=== PATIENT | female | born 1965 | race Hispanic/Latino ===

== ENCOUNTER 2017-04-30 11:23 | Outpatient (CLI) | payer OTHER ==
[~2017-04-30] VITALS: Ht 147.3 cm; Wt 74.4 kg
[~2017-04-30 11:23] MED LIST: FERR1TAB8 PO; MAXA10TA15 PO; VITA1CAP40 PO
[2017-04-30] MEDS ORDERED: LIDOCAINE 2% INJ 100 MG/5 ML SDV (FOR ANES.) As Ordered ONE (11:40)
[2017-04-30] MEDS ORDERED: PROPOFOL 500 MG/50 ML VIAL As Ordered ONE (11:40)
[2017-04-30] MEDS ORDERED: NS 1,000 ML IV ONE (12:00)
--- NOTE | 2017-04-30 12:50 | ROOR ---
Patient Name: Nola Romano Procedure Date: 04/30/2017 12:21 PM Date of : 1965 Age: 51 Room: [facility] Gender: Female Note Status: Finalized Procedure: Total Colonoscopy to Cecum Indications: Screening for colorectal malignant neoplasm Providers: Allen Botello MD Referring MD: JEANNETTE MACHADO MD Requesting Provider: Medicines: Monitored Anesthesia Care Complications: No immediate complications. Procedure: Pre-Anesthesia Assessment: - The heart rate, respiratory rate, oxygen saturations, blood pressure, adequacy of pulmonary ventilation, and response to care were monitored throughout the procedure. The Colonoscope was introduced through the anus and advanced to the cecum, identified by appendiceal orifice and ileocecal valve. The colonoscopy was performed without difficulty. The patient tolerated the procedure well. The quality of the bowel preparation was excellent. Findings: The perianal and digital rectal examinations were normal. Non-bleeding internal hemorrhoids were found during retroflexion. The hemorrhoids were small and Grade I (internal hemorrhoids that do not prolapse). No other significant abnormalities were identified in a careful examination of the remainder of the colon. The exam was otherwise without abnormality. Impression: - Non-bleeding internal hemorrhoids. - The examination was otherwise normal. - No specimens collected. - The exam was otherwise normal to the cecum. Recommendation: - Patient has a contact number available for emergencies. The signs and symptoms of potential delayed complications were discussed with the patient. Return to normal activities tomorrow. Written discharge instructions were provided to the patient. - High fiber diet. - Discharge patient to home. - Continue present medications. - Repeat colonoscopy in 10 years for screening purposes. - Return to referring physician. - The findings and recommendations were discussed with the patient's family. Allen Botello MD Allen Botello MD 04/30/2017 12:50:15 PM This report has been signed electronically. Number of Addenda: 0 Note Initiated On: 04/30/2017 12:21 PM Estimated Blood Loss: Estimated blood loss: none.
--- NOTE | 2017-04-30 12:56 | ROOR ---
Patient Name: Nola Romano Procedure Date: 04/30/2017 12:20 PM Date of : 1965 Age: 51 Room: [facility] Gender: Female Note Status: Finalized Procedure: Upper Endoscopy + Biopsies Indications: Heartburn Providers: Allen Botello MD Referring MD: JEANNETET MACHADO MD Requesting Provider: Medicines: Monitored Anesthesia Care Complications: No immediate complications. Procedure: Pre-Anesthesia Assessment: - The heart rate, respiratory rate, oxygen saturations, blood pressure, adequacy of pulmonary ventilation, and response to care were monitored throughout the procedure. The Endoscope was introduced through the mouth, and advanced to the second part of duodenum. The upper GI endoscopy was accomplished without difficulty. The patient tolerated the procedure well. Findings: The Z-line was irregular and was found 35 cm from the incisors. Multiple biopsies were obtained with cold forceps for histology randomly at the gastroesophageal junction. A small hiatal hernia was present. No other significant abnormalities were identified in a careful examination of the stomach. The exam of the duodenum was otherwise normal. Impression: - Z-line irregular, 35 cm from the incisors. - Small hiatal hernia. - Multiple biopsies were obtained at the gastroesophageal junction. - The examination was otherwise normal. Recommendation: - Patient has a contact number available for emergencies. The signs and symptoms of potential delayed complications were discussed with the patient. Return to normal activities tomorrow. Written discharge instructions were provided to the patient. - High fiber diet. - Discharge patient to home. - Follow an antireflux regimen. - Continue present medications. - Await pathology results. - Telephone GI clinic for pathology results in 1 week. - The findings and recommendations were discussed with the patient's family. Allen Botello MD Allen Botello MD 04/30/2017 12:55:49 PM This report has been signed electronically. Number of Addenda: 0 Note Initiated On: 04/30/2017 12:20 PM Estimated Blood Loss: Estimated blood loss: none.
[2017-04-30 13:28] VITALS: BP 132/60
== END 2017-04-30 13:30 | disposition home or self-care (01) ==
LOC: M OPP 11:23
PROVIDERS: ATTEND Internal Medicine Gastroenterology
DX: R19.4 Change in bowel habit (principal); K21.9 Gastro-esophageal reflux disease without esophagitis; K64.0 First degree hemorrhoids; R12 Heartburn; K22.8 Other specified diseases of esophagus; K44.9 Diaphragmatic hernia without obstruction or gangrene; R19.7 Diarrhea, unspecified; D64.9 Anemia, unspecified; R51 Headache; Z79.899 Other long term (current) drug therapy

== ENCOUNTER → 2017-07-02 | Outpatient (CLI) | payer OTHER ==
--- NOTE | 2017-07-02 11:49 | REPMRS ---
Patient History The patient states she had a clinical breast exam in April 2017. Family history of ovarian cancer in maternal cousin at age 30. Reductions of both breasts, 2002. Taking hormonal contraceptives for 1 year. Digital Mammo Screening Bilat: July 02, 2017 - Exam #: [id number] Bilateral CC and MLO view(s) were taken. Technologist: Laney Berger, Technologist Prior study comparison: June 27, 2016, bilateral digital mammo screening bilat performed at [facility]. June 22, 2015, bilateral digital mammo screening bilat performed at [facility]. FINDINGS: There are scattered fibroglandular densities. There has been no change in the appearance of the mammogram from the prior studies. There is a mild amount of residual fibroglandular tissue which is fairly symmetric. There is no interval development of dominant mass, architectural distortion, or clustered microcalcification suggestive of malignancy. ASSESSMENT: BI-RADS/ACR category 1 mammogram. Negative. Recommendation Routine screening mammogram in 1 year (for women over age 40). This mammogram was interpreted with the aid of an FDA-approved computer-aided dectection system. Electronically Signed By: Kurt Almendarez MD 07/02/17 [id number]
== END ==
LOC: M RAD 10:38
PROVIDERS: ATTEND Nurse Practitioner Women's Health
DX: Z12.31 Encounter for screening mammogram for malignant neoplasm of breast (principal)

== ENCOUNTER 2017-08-27 08:38 | Emergency (ER) | payer OTHER | END 2017-08-27 09:31 | disposition home or self-care (01) | LOC: M ED 08:38 | DX: R20.2 Paresthesia of skin (principal); G43.909 Migraine, unspecified, not intractable, without status migrainosus; J30.9 Allergic rhinitis, unspecified | CPT/HCPCS: 99283 ==

== ENCOUNTER → 2018-07-06 | Outpatient (CLI) | payer OTHER | LOC: M RAD 10:54 | DX: Z12.31 Encounter for screening mammogram for malignant neoplasm of breast (principal); Z79.3 Long term (current) use of hormonal contraceptives | CPT/HCPCS: 77067 ==

== ENCOUNTER → 2019-07-06 | Outpatient (CLI) | payer OTHER ==
[~2019-07-06] MED LIST changes: +TIZA2CAP PO; +TOPA50TA8 PO; -VITA1CAP40 PO; +VITA50005 PO
--- NOTE | 2019-07-06 09:17 | REPMRS ---
Patient History The patient states she had a clinical breast exam in May 2019. Family history of ovarian cancer at age 30 in maternal cousin. Reductions of both breasts, 2002. Took hormonal contraceptives for 1 year. The Teresita Sorto lifetime risk for breast cancer is 9.4%. Digital Mammo Screening Bilat: July 06, 2019 - Exam #: [id number] Bilateral CC and MLO view(s) were taken. Technologist: Mirta Blount, Technologist Prior study comparison: July 06, 2018, bilateral digital mammo screening bilat performed at [facility]. July 02, 2017, bilateral digital mammo screening bilat performed at [facility]. FINDINGS: There are scattered fibroglandular densities. There has been no change in the appearance of the mammogram from the prior studies. There is a mild amount of residual fibroglandular tissue which is fairly symmetric. There is no interval development of dominant mass, architectural distortion, or clustered microcalcification suggestive of malignancy. Assessment: BI-RADS/ACR category 1 mammogram. Negative Mammogram. Recommendation Routine screening mammogram in 1 year (for women over age 40). This mammogram was interpreted with the aid of an FDA-approved computer-aided dectection system. Electronically Signed By: Kurt Almendarez MD 07/06/19 [id number]
== END ==
LOC: M RAD 07:15
PROVIDERS: ATTEND Family Medicine
DX: Z12.31 Encounter for screening mammogram for malignant neoplasm of breast (principal)

== ENCOUNTER → 2019-07-29 | Outpatient (CLI) | payer OTHER ==
[~2019-07-29] MED LIST changes: +METHACHOLINE KIT (J7674) INH ONE
--- NOTE | 2019-07-29 10:02 | PFTRPT ---
Height: 58.00 Inches Weight: 170.00 Lbs BSA: 1.70 Diagnosis: R05 DATE OF PROCEDURE: 07/29/2019 ORDERED BY: SAMMY Atkinson INTERPRETATION: Study of excellent technical quality. Under protocol, methacholine was administered. At a dose of 10 mg or 63.875 CDUs, a 39% decline in the FEV1 was noted. PC of 3.90 is significant. Flow rates did return to baseline post bronchodilator administration. IMPRESSION: Positive methacholine challenge study. MTDD
--- NOTE | 2019-07-29 11:32 | REP ---
CT CHEST WITHOUT CONTRAST: CT chest performed without IV contrast. Sagittal and coronal reconstruction images are performed. There is a calcified granuloma peripherally in the right lower lobe. No other parenchymal abnormalities are seen. There is no infiltrate. No gross mediastinal or axillary adenopathy is seen. Heart is normal in size. There is no pleural or pericardial effusion. There is no thoracic aortic aneurysm. There are mild degenerative changes of the spine. Metallic fixation is seen in the lower cervical spine. Cyst is seen in the posterior segment of the right lobe of the liver measuring 3.4 cm. Several small cysts are seen in the left kidney. IMPRESSION: Calcified granuloma right lower lobe. Lungs are otherwise clear. No gross adenopathy. Electronically Signed by Kurt Almendarez MD 07/29/2019 01:45 P
== END ==
LOC: M CARPUL 08:39
PROVIDERS: ATTEND Nurse Practitioner Family
DX: J84.10 Pulmonary fibrosis, unspecified (principal)
CPT/HCPCS: 71250; 94070; J7674

== ENCOUNTER → 2020-07-10 | Outpatient (CLI) | payer OTHER ==
[~2020-07-10] MED LIST changes: -METHACHOLINE KIT (J7674) INH ONE
--- NOTE | 2020-07-11 08:16 | REPMRS ---
Patient History The patient states she has not had a clinical breast exam in over a year. Family history of ovarian cancer at age 30 in maternal cousin. Reductions of both breasts, 2002. Took hormonal contraceptives for 1 year. Digital Woman Screen Mammo: July 10, 2020 - Exam #: [id number] Bilateral CC and MLO view(s) were taken. Technologist: Susan hKan, Technologist Prior study comparison: July 06, 2019, bilateral digital mammo screening bilat, performed at [facility]. July 06, 2018, bilateral digital mammo screening bilat, performed at [facility]. July 02, 2017, bilateral digital mammo screening bilat, performed at [facility]. FINDINGS: There are scattered fibroglandular densities. The Volpara volumetric breast density category is:B. There has been no change in the appearance of the mammogram from the prior studies. There is a mild amount of scattered fibroglandular density which is fairly symmetric. There is no interval development of dominant mass, architectural distortion, or grouped microcalcification suggestive of malignancy. 3-D tomosynthesis shows no additional findings. Assessment: BI-RADS/ACR category 1 mammogram. Negative Mammogram. Recommendation Routine screening mammogram of both breasts in 1 year (for women over age 40). This patient's Lifetime Breast Cancer Risk is estimated at 9.2 %. This mammogram was interpreted with the aid of an FDA-approved computer-aided dectection system. Electronically Signed By: Richi Regalado MD 07/11/20 0815
== END ==
LOC: M WHC 13:49
PROVIDERS: ATTEND Nurse Practitioner Primary Care
DX: Z12.31 Encounter for screening mammogram for malignant neoplasm of breast (principal); Z84.1 Family history of disorders of kidney and ureter

== ENCOUNTER → 2021-04-06 | Outpatient (CLI) | payer OTHER ==
[~2021-04-06] MED LIST changes: +PROHANCE 279.3MG/ML 15ML VIAL As Ordered ONE; +PROHANCE 279.3MG/ML 5ML VIAL As Ordered ONE
--- NOTE | 2021-04-09 09:20 | REP ---
INDICATION: PAIN IN LT KNEE. COMPARISON: MRI 11/12/2019. TECHNIQUE: Multiple sequences obtained in the axial, coronal and sagittal planes prior to and following the intravenous administration of 16 cc ProHance. FINDINGS: Menisci: Intact, no tear. Cruciate ligaments: Intact. Collateral ligaments: Intact. Extensor mechanism/patellar retinacula: Intact. 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 No osteochondral defect is seen. Bone marrow: Normal signal, no edema or occult fracture. Joint fluid: There is a small joint effusion. Popliteal region: No cyst. No abnormal osseous or soft tissue enhancement is visualized. IMPRESSION: There is no evidence of internal derangement as discussed above. Isug-ea-wlijhopo global chondromalacia. Small joint effusion. <Electronically signed by Kurt Almendarez > 04/09/21 [id number]
== END ==
LOC: M RAD 07:24
PROVIDERS: ATTEND Nurse Practitioner Primary Care
DX: M25.562 Pain in left knee (principal)
CPT/HCPCS: 73723; A9576

== ENCOUNTER → 2021-04-12 | Outpatient (CLI) | payer OTHER ==
[~2021-04-12] MED LIST changes: -PROHANCE 279.3MG/ML 15ML VIAL As Ordered ONE; -PROHANCE 279.3MG/ML 5ML VIAL As Ordered ONE
[2021-04-12 17:19] LABS: BASO # 0.1 10^3/uL (0.0-0.2); BASO % 0.6 % (0.0-1.0); EOS # 0.1 10^3/uL (0.0-0.5); EOS % 1.5 % (0.0-3.0); HEMATOCRIT 38.4 % (36.0-47.0); HEMOGLOBIN 12.1 g/dl (12.0-15.5); LYMPH # 2.8 10^3/uL (1.5-5.0); LYMPH % 35.1 % (24.0-44.0); MEAN CORPUSCULAR HEMOGLOBIN 27.8 pg (27.0-33.0); MEAN CORPUSCULAR HGB CONC 31.5 g/dl (32.0-36.5); MEAN CORPUSCULAR VOLUME 88.3 fl (80.0-96.0); MONO # 0.4 10^3/uL (0.0-0.8); MONO % 5.3 % (2.0-8.0); NEUTROPHILS # 4.6 10^3/uL (1.5-8.5); NEUTROPHILS % 57.3 % (36.0-66.0); PLATELET COUNT, AUTOMATED 424 10^3/uL (150-450); RED BLOOD COUNT 4.35 10^6/uL (4.00-5.40); WHITE BLOOD COUNT 8.1 10^3/uL (4.0-10.0)
[2021-04-12 17:43] LABS: RHEUMATOID FACTOR QUANT < 10.0 IU/ML (<15.0)
[2021-04-12 18:32] LABS: ERYTHROCYTE SEDIMENTATION RATE 31 mm/hr (0-30)
[2021-04-14 17:10] LABS: ANTINUCLEAR ANTIBODIES DIRECT Negative (Negative); Lyme Disease IgG/IgM Antibodie <0.91 ISR (0.00-0.90); Lyme Disease IgM Ab Quantitati <0.80 index (0.00-0.79)
== END ==
LOC: M PLALAB 15:17
PROVIDERS: ATTEND Orthopaedic Surgery
DX: M25.562 Pain in left knee (principal)

== ENCOUNTER → 2021-07-13 | Outpatient (CLI) | payer OTHER ==
--- NOTE | 2021-07-13 12:01 | REPMRS ---
Patient History The patient states she has not had a clinical breast exam in over a year. Family history of ovarian cancer at age 30 in maternal cousin. Reductions of both breasts, 2002. Took hormonal contraceptives for 1 year. Tomosynthesis is performed. Volpara breast density is b[facility] Patient states no breast complaints today. Patient has signed MRS History Sheet. Pfizer 08/23/20, 09/13/20 booster 05/05/21 L arm. Digital Woman Screen Mammo: July 13, 2021 - Exam #: [id number] Bilateral CC and MLO view(s) were taken. Technologist: Susan Khan, Technologist Prior study comparison: July 10, 2020, bilateral digital woman screen mammo performed at [facility]. July 06, 2019, bilateral digital mammo screening bilat, performed at [facility]. FINDINGS: There are scattered fibroglandular densities. There has been no change in the appearance of the mammogram from the prior studies. There is a mild amount of residual fibroglandular tissue which is fairly symmetric. There is no interval development of dominant mass, architectural distortion, or clustered microcalcification suggestive of malignancy. Assessment: BI-RADS/ACR category 1 mammogram. Negative Mammogram. Recommendation Routine screening mammogram in 1 year (for women over age 40). This mammogram was interpreted with the aid of an FDA-approved computer-aided dectection system. Electronically Signed By: Kurt Almendarez MD 07/13/21 0194
== END ==
LOC: M WHC 09:52
PROVIDERS: ATTEND Student in an Organized Health Care Education/Training Program
DX: Z12.31 Encounter for screening mammogram for malignant neoplasm of breast (principal)

== ENCOUNTER → 2021-11-30 | Outpatient (CLI) | payer OTHER | LOC: M PLAIMG 13:01 | PROVIDERS: ATTEND Orthopaedic Surgery | DX: M54.50 Low back pain, unspecified (principal) ==

== ENCOUNTER → 2022-01-16 | Outpatient (CLI) | payer OTHER ==
[~2022-01-16] MED LIST changes: +PROHANCE 279.3MG/ML 15ML VIAL ONE
== END ==
LOC: M PLAIMG 13:10
PROVIDERS: ATTEND Family Medicine
DX: N28.1 Cyst of kidney, acquired (principal); K76.89 Other specified diseases of liver; K80.20 Calculus of gallbladder without cholecystitis without obstruction; K86.2 Cyst of pancreas
CPT/HCPCS: 74183; A9576

== ENCOUNTER 2022-06-24 07:23 | Day surgery (SDC) | payer OTHER ==
[~2022-06-24] VITALS: Ht 149.9 cm; Wt 73.5 kg
[~2022-06-24 07:23] MED LIST changes: +ADV250INH INH; +ALBU8.5H INH; +BOTO200I IJ; +CYMB60CA4 PO; +LIDOCAINE 2% 100MG/5ML SDV (FOR ANES.) As Ordered ONE; +METF10004 PO; +NEXI20CA PO; +NS 1,000 ML IV ONE; -PROHANCE 279.3MG/ML 15ML VIAL ONE; +WELLTAB40 PO; +ZALE10CA PO; +propofoL 200 MG/20 ML VIAL As Ordered ONE
[2022-06-24 09:27] VITALS: BP 160/74
== END 2022-06-24 09:50 | disposition home or self-care (01) ==
LOC: M OPP 07:23
PROVIDERS: ATTEND Internal Medicine Gastroenterology
DX: Z12.11 Encounter for screening for malignant neoplasm of colon (principal); Z80.0 Family history of malignant neoplasm of digestive organs; K64.0 First degree hemorrhoids; K22.89 Other specified disease of esophagus; K44.9 Diaphragmatic hernia without obstruction or gangrene; K22.70 Barrett's esophagus without dysplasia; K29.50 Unspecified chronic gastritis without bleeding; Z79.51 Long term (current) use of inhaled steroids; Z79.84 Long term (current) use of oral hypoglycemic drugs; Z79.899 Other long term (current) drug therapy; J45.909 Unspecified asthma, uncomplicated

== ENCOUNTER → 2022-07-19 | Outpatient (CLI) | payer OTHER ==
[~2022-07-19] MED LIST changes: -LIDOCAINE 2% 100MG/5ML SDV (FOR ANES.) As Ordered ONE; -NS 1,000 ML IV ONE; -propofoL 200 MG/20 ML VIAL As Ordered ONE
== END ==
LOC: M WHC 11:07
PROVIDERS: ATTEND Student in an Organized Health Care Education/Training Program
DX: Z12.31 Encounter for screening mammogram for malignant neoplasm of breast (principal)

== ENCOUNTER 2022-10-03 06:11 | Observation (INO) | payer OTHER ==
[~2022-10-03] VITALS: Ht 149.9 cm; Wt 75.9 kg
[~2022-10-03 06:11] MED LIST changes: +TOPA1TAB PO
[2022-10-03] MEDS ORDERED: LIDOCAINE 1% SDV 5ML VIAL SC PRN (06:20)
[2022-10-03] MEDS ORDERED: LR 1,000 ML IV SCH ×2 (06:20→08:50)
[2022-10-03] MEDS ORDERED: ceFAZolin SOD 2 GM in IV 1 EA IV ONE ×2 (06:20→13:00)
[2022-10-03] MEDS ORDERED: HEPARIN SOD (PORCINE) 5000UNITS/ML 1ML VIAL/SYRINGE SC ONE (06:20)
[2022-10-03] MEDS ORDERED: fentaNYL 100 MCG/2 ML INJECTION As Ordered ONE (06:54)
[2022-10-03] MEDS ORDERED: MIDAZOLAM INJ 2MG/2ML VIAL As Ordered ONE (06:54)
[2022-10-03] MEDS ORDERED: propofoL 200 MG/20 ML VIAL As Ordered ONE (06:58)
[2022-10-03] MEDS ORDERED: LIDOCAINE 2% 100MG/5ML SDV (FOR ANES.) As Ordered ONE ×2 (06:58→11:22)
[2022-10-03] MEDS ORDERED: ONDANSETRON 4MG 2ML VIAL As Ordered ONE (07:00)
[2022-10-03 07:02] LABS: PLATELET COUNT, AUTOMATED 414 10^3/uL (150-450)
[2022-10-03] MEDS ORDERED: ROCURONIUM BROMIDE 50MG/5ML VIAL As Ordered ONE ×2 (07:06→10:48)
[2022-10-03] MEDS ORDERED: BUPIVACAINE LIPOSOME/PF 1.3% 20ML VIAL (13.3MG/ML)(EXPAREL) As Ordered ONE (07:13)
[2022-10-03] MEDS ORDERED: BUPIVACAINE HCL 0.25% 30ML VIAL As Ordered ONE (07:13)
[2022-10-03] MEDS ORDERED: BUPIVACAINE HCL 0.25% 10ML VIAL As Ordered ONE (07:14)
[2022-10-03] MEDS ORDERED: GENTAMICIN SULF 80MG/2ML VIAL As Ordered ONE (07:15)
[2022-10-03 07:16] LABS: INR 0.9; PROTHROMBIN TIME 12.3 SECONDS (12.5-14.5)
[2022-10-03] MEDS ORDERED: ESOM40CA35 PO (07:30)
[2022-10-03] MEDS ORDERED: ADVA230A INH (07:30)
[2022-10-03] MEDS ORDERED: ZALE5CA PO (07:30)
[2022-10-03] MEDS ORDERED: BUPR15TASR PO (07:34)
[2022-10-03] MEDS ORDERED: HOME MED LIST COMPLETE! XX SCH (07:35)
[2022-10-03] MEDS ORDERED: HYDROmorphone HCL 2MG/ML 1ML VIAL As Ordered ONE (08:32)
[2022-10-03] MEDS ORDERED: ACETAMINOPHEN 1000MG 100ML IV BAG As Ordered ONE (08:43)
[2022-10-03] MEDS ORDERED: SUGAMMADEX SODIUM 500 MG/5 ML VIAL (BRIDION) As Ordered ONE (08:45)
[2022-10-03] MEDS ORDERED: ONDANSETRON 4MG 2ML VIAL IV PRN ×3 (08:50→11:50)
[2022-10-03] MEDS ORDERED: fentaNYL 100 MCG/2 ML INJECTION IV PRN ×2 (08:50→11:15)
[2022-10-03] MEDS ORDERED: oxyCODONE 5MG TAB PO PRN ×2 (08:50→11:15)
[2022-10-03] MEDS ORDERED: LACRILUBE (AKWA TEARS) OPHTH OINT 3.5GM As Ordered ONE (11:23)
[2022-10-03] MEDS ORDERED: LABETALOL 100MG/20ML VIAL As Ordered ONE (11:37)
[2022-10-03] MEDS ORDERED: ACETAMINOPHEN TAB 650MG DOSE (2X325MG) PO PRN (11:50)
[2022-10-03] MEDS ORDERED: traMADol 50 MG TAB PO PRN (11:50)
[2022-10-03] MEDS ORDERED: ALBUTEROL 90 MCG/ACT 8GM HFA INHALER INH PRN (11:50)
[2022-10-03] MEDS ORDERED: METF-838 PO (12:06)
[2022-10-03] MEDS: METOPROLOL 5 MG/5 ML VIAL IV PRN ×5 (12:16→12:51)
[2022-10-03 14:38] VITALS: BP 130/73
[2022-10-03 15:10] VITALS: BP 106/59
[2022-10-03] MEDS: PERCOCET 5MG/325MG TAB PO PRN ×2 (15:49→22:45)
[2022-10-03] MEDS: LR 1,000 ML IV SCH (15:50)
[2022-10-03 16:10] VITALS: BP 107/58
[2022-10-03 17:10] VITALS: BP 109/62
[2022-10-03 18:06] VITALS: BP 110/63
[2022-10-03 22:13] VITALS: BP 110/65
[2022-10-04 02:00] VITALS: BP 109/64
[2022-10-04] MEDS: LR 1,000 ML IV SCH (02:20)
[2022-10-04 06:00] VITALS: BP 132/62
[2022-10-04] MEDS: PERCOCET 5MG/325MG TAB PO PRN ×2 (06:21→11:56)
[2022-10-04] MEDS ORDERED: metFORMIN XR 500MG TAB *GLUCOPHAGE XR PO SCH (09:00)
[2022-10-04] MEDS ORDERED: TRAM50TA2 PO ×2 (12:19→13:12)
== END 2022-10-04 13:51 | disposition home or self-care (01) ==
LOC: M SDC 06:11 → M MS5PR 06:12
PROVIDERS: ADMIT Plastic Surgery Surgery of the Hand; ATTEND Plastic Surgery Surgery of the Hand
DX: M54.07 Panniculitis affecting regions of neck and back, lumbosacral region (principal); R21 Rash and other nonspecific skin eruption; R73.03 Prediabetes; K21.9 Gastro-esophageal reflux disease without esophagitis; M54.2 Cervicalgia; G43.909 Migraine, unspecified, not intractable, without status migrainosus; J45.909 Unspecified asthma, uncomplicated; F41.9 Anxiety disorder, unspecified; F32.A Depression, unspecified; Z79.899 Other long term (current) drug therapy; Z79.51 Long term (current) use of inhaled steroids; Z79.84 Long term (current) use of oral hypoglycemic drugs
CPT/HCPCS: 15830; 36415; 85027; 85610; 88300; 96374; C9290; J0131; J0690; J1100; J1170; J1580; J1644; J2250; J2405; J3010; S0020

== ENCOUNTER → 2023-07-25 | Outpatient (CLI) | payer OTHER ==
[~2023-07-25] MED LIST changes: +ADVA230A INH; +BUPR15TASR PO; +ESOM40CA35 PO; -MAXA10TA15 PO; +METF-838 PO; +RIZA10TA66 PO; +TRAM50TA2 PO; +ZALE5CA PO
== END ==
LOC: M WHC 10:26
PROVIDERS: ATTEND Student in an Organized Health Care Education/Training Program
DX: Z12.31 Encounter for screening mammogram for malignant neoplasm of breast (principal)

== ENCOUNTER → 2024-07-30 | Outpatient (CLI) | payer OTHER ==
[~2024-07-30] MED LIST changes: -ADV250INH INH; +ADVA1AER9 INH
== END ==
LOC: M WHC 09:58
PROVIDERS: ATTEND Internal Medicine
DX: Z12.31 Encounter for screening mammogram for malignant neoplasm of breast (principal); R92.323 Mammographic fibroglandular density, bilateral breasts

== ENCOUNTER 2024-12-26 21:51 | Emergency (ER) | payer OTHER ==
[~2024-12-26] VITALS: Ht 149.9 cm; Wt 53.6 kg
[2024-12-26 22:24] LABS: BASO % 0.4 % (0.0-1.0); EOS # 0.1 10^3/uL (0.0-0.5); EOS % 0.6 % (0.0-3.0); HEMOGLOBIN 12.9 g/dl (12.0-15.5); LYMPH # 1.4 10^3/uL (1.5-5.0); LYMPH % 17.4 % (24.0-44.0); MEAN CORPUSCULAR HEMOGLOBIN 29.4 pg (27.0-33.0); MEAN CORPUSCULAR HGB CONC 33.1 g/dl (32.0-36.5); MEAN CORPUSCULAR VOLUME 88.8 fl (80.0-96.0); MONO # 0.6 10^3/uL (0.0-0.8); MONO % 6.8 % (2.0-8.0); NEUTROPHILS % 74.6 % (36.0-66.0); PLATELET COUNT, AUTOMATED 403 10^3/uL (150-450); RED BLOOD COUNT 4.39 10^6/uL (4.00-5.40); WHITE BLOOD COUNT 8.1 10^3/uL (4.0-10.0)
[2024-12-26 22:36] LABS: KETONE, URINE AUTO RFX TRACE mg/dL (NEGATIVE); LEUKOCYTE ESTERASE UR AUTO RFX NEGATIVE (NEGATIVE); MUCUS, URINE RFX LARGE (NEGATIVE); NITRITE, URINE AUTO RFX NEGATIVE (NEGATIVE); RBC, URINE AUTO RFX 1 /HPF (0-3); SQUAM EPITHELIAL CELL UR AURFX 15 /HPF (0-6); WBC, URINE AUTO RFX 6 /HPF (0-3)
[2024-12-26 22:49] LABS: LIPASE 81 U/L (12-53)
[2024-12-26 22:50] LABS: ALKALINE PHOSPHATASE 211 U/L (35-104); ALT/SGPT 556 U/L (7.0-40); AST/SGOT 539 U/L (<34); BILIRUBIN,DIRECT 1.5 MG/DL (<0.4); BILIRUBIN,TOTAL 2.6 MG/DL (0.3-1.2); BLOOD UREA NITROGEN 20 MG/DL (9-23); CALCIUM LEVEL 9.6 MG/DL (8.5-10.1); CARBON DIOXIDE LEVEL 34 MMOL/L (20-31); CHLORIDE LEVEL 100 MMOL/L (98-107); CREATININE FOR GFR 0.56 MG/DL (0.55-1.30); GLOMERULAR FILTRATION RATE > 90.0 (>51); GLUCOSE, FASTING 112 MG/DL (60-100); POTASSIUM SERUM 4.3 MMOL/L (3.5-5.1); SODIUM LEVEL 143 MMOL/L (136-145); TOTAL PROTEIN 7.1 G/DL (5.7-8.2)
[2024-12-26] MEDS ORDERED: ISOVUE-370 76% 100ML VIAL As Ordered ONE (23:28)
[2024-12-26] MEDS: ONDANSETRON 4MG 2ML VIAL IV ONE (23:32)
[2024-12-26] MEDS: MORPHINE 2 MG/ML 1ML VIAL IV ONE (23:33)
[2024-12-26] MEDS: NS (Normal Saline) 0.9% 1,000 ML IV ONE (23:48)
[2024-12-27 00:52] LABS: HEPATITIS B SURFACE ANTIGEN NEGATIVE (NEGATIVE)
[2024-12-27 01:12] LABS: HEPATITIS B CORE ANTIBODY IGM NEGATIVE (NEGATIVE); HEPATITIS C VIRUS ABY INDEX 0.04 INDEX (<0.8)
[2024-12-27] MEDS: MORPHINE 2 MG/ML 1ML VIAL IV ONE (03:15)
[2024-12-27 03:50] LABS: ALBUMIN 3.3 G/DL (3.2-5.2); BILIRUBIN,DIRECT 1.2 MG/DL (<0.4); BILIRUBIN,TOTAL 2.2 MG/DL (0.3-1.2)
[2024-12-27] MEDS ORDERED: MORPHINE 4 MG/ML 1ML VIAL IV PRN (03:55)
[2024-12-27] MEDS ORDERED: PIPERACILLIN/TAZOBACTAM SOD 4.5 GM in DEXTROSE 5% (D5W) ADV/MINI-BAG 50 ML IV ONE (03:55)
[2024-12-27] MEDS: NS (Normal Saline) 0.9% 1,000 ML IV SCH (04:18)
[2024-12-27] MEDS: MORPHINE 2 MG/ML 1ML VIAL IV PRN (10:41)
[2024-12-27] MEDS: PIPERACILLIN/TAZOBACTAM SOD 4.5 GM in DEXTROSE 5% (D5W) ADV/MINI-BAG 50 ML IV ONE (11:47)
[2024-12-27] MEDS ORDERED: PIPERACILLIN/TAZOBACTAM SOD 4.5 GM in DEXTROSE 5% (D5W) ADV/MINI-BAG 50 ML IV SCH (12:50)
[2024-12-27] MEDS: ACETAMINOPHEN 500 MG TAB PO ONE (16:48)
[2024-12-27] MEDS: PIPERACILLIN/TAZOBACTAM SOD 4.5 GM in DEXTROSE 5% (D5W) ADV/MINI-BAG 50 ML IV SCH (18:24)
[2024-12-27 18:42] VITALS: BP 132/63; TEMP 98.2; O2SAT 97
== END 2024-12-27 18:49 | disposition short-term general hospital (02) ==
LOC: M ED 21:51
DX: K85.90 Acute pancreatitis without necrosis or infection, unspecified (principal); K80.00 Calculus of gallbladder with acute cholecystitis without obstruction; K21.9 Gastro-esophageal reflux disease without esophagitis; Z79.51 Long term (current) use of inhaled steroids; Z79.84 Long term (current) use of oral hypoglycemic drugs; Z79.899 Other long term (current) drug therapy
CPT/HCPCS: 74177; 74181; 80048; 80074; 80076; 81001; 83605; 83690; 85025; 87040; 93005; 96361; 96365; 96375; 96376; 99285; J2405; J2543; Q9967

== ENCOUNTER → 2025-04-01 | Outpatient (CLI) | payer OTHER | LOC: M CARPUL 09:51 | PROVIDERS: ATTEND Internal Medicine | DX: I38 Endocarditis, valve unspecified (principal) ==

== ENCOUNTER 2025-05-04 10:29 | Day surgery (SDC) | payer OTHER ==
[~2025-05-04] VITALS: Ht 147.3 cm; Wt 54.0 kg
[~2025-05-04 10:29] MED LIST changes: +ACET-840 PO; +BUSP1TAB PO; +CYAN100049 PO; +DICL100G10 TOP; +DULO-34 PO; +FERR325T19 PO; +FLUT12HF3 INH; +GABA-1172 PO; +LIDO1ADH93 TD; +LIDOCAINE 2% 100 MG/5 ML SDV (FOR ANES.) As Ordered ONE; +OMEP-173 PO; +SEMA2.4P SC; +SPIR-10 PO; +VALA500T5 PO; +VITA500T9 PO
[2025-05-04 12:20] VITALS: TEMP 96.8
[2025-05-04 12:42] VITALS: BP 129/72; O2SAT 100
== END 2025-05-04 12:50 | disposition home or self-care (01) ==
LOC: M OPP 10:29
PROVIDERS: ATTEND Internal Medicine Gastroenterology
DX: Z12.11 Encounter for screening for malignant neoplasm of colon (principal); K63.5 Polyp of colon; K57.30 Diverticulosis of large intestine without perforation or abscess without bleeding; K64.0 First degree hemorrhoids; Z80.0 Family history of malignant neoplasm of digestive organs; K22.70 Barrett's esophagus without dysplasia; K44.9 Diaphragmatic hernia without obstruction or gangrene; R12 Heartburn; G47.30 Sleep apnea, unspecified; Z79.51 Long term (current) use of inhaled steroids; Z79.84 Long term (current) use of oral hypoglycemic drugs; Z79.85 Long-term (current) use of injectable non-insulin antidiabetic drugs; Z79.899 Other long term (current) drug therapy; J45.909 Unspecified asthma, uncomplicated